=== PATIENT | female | born 1965 | race Asian ===

== ENCOUNTER 2017-01-08 08:29 | Emergency (ER) | payer OTHER ==
[~2017-01-08] VITALS: Ht 162.6 cm; Wt 77.1 kg
[~2017-01-08 08:29] MED LIST: AMOX TR-K CLV1 EAC2 ORAL; COLACE100 MG ORAL; DOCUSATE SODIU100 MG ORAL; FERROUS SULFAT325 M2 ORAL; IBUPROFEN800 M1 PO; IBUPROFEN800 MG ORAL; METFORMIN HCL500 M1 ORAL; NAPROXEN500 M1 ORAL; NORCO 5-325 TA1 EACH ORAL; PERCOCET 5-3251 EACH ORAL; PROMETHAZINE HC25 MG RC; PROMETRIUM100 MG PO; REGLAN10 MG ORAL; ROXICET 5-3251 EACH ORAL; TORADOL10 MG GT
[2017-01-08 08:34] VITALS: BP 149/76
--- NOTE | 2017-01-08 08:54 | Emergency Room Report ---
History of Present Illness General Chief Complaint: Abdominal Pain Source: Patient Present Illness HPI Patient present with complaints of mid epigastric abdominal pain patient reports that since yesterday after eating a salad she began having rhythmical contractions and cramping of her stomach area This was followed by vomiting Patient has now developed increased diarrhea Pain is 8/10 cramping epigastric region Patient reports extensive GI history including multiple hospital visits Last was in [place] where she had an NG tube Patient has had partial hysterectomy, and reports removal of previous fibroids Denies any vaginal pain or spotting denies any pelvic discomfort Allergies: Coded Allergies: No Known Allergies (Unverified , 12/12/12) Patient History Past Medical History: see triage record Pertinent Family History: none Now: No Reviewed Nursing Documentation: PMH: Agreed, PSxH: Agreed Nursing Documentation-PMH Hx Cardiac Problems: No - Hysterectomy september Hx Diabetes: No Hx Cancer: No Hx Gastrointestinal Problems: Yes Hx Neurological Problems: No Review of Systems All Other Systems: negative except mentioned in HPI Physical Exam Vital Signs Date Time Temp Pulse Resp B/P (MAP) Pulse Ox O2 Delivery O2 Flow Rate FiO2 01/08/17 08:34 97.9 79 20 149/76 99 Room Air Sp02 EP Interpretation: reviewed, normal General Appearance: mild distress - Tearful, uncomfortable Head: normocephalic, atraumatic Eyes: bilateral eye PERRL, bilateral eye EOMI ENT: hearing grossly normal, normal pharynx, TMs + canals normal, uvula midline Neck: full range of motion, supple, no meningismus, no bony tend Respiratory: lungs clear, normal breath sounds, no rhonchi, no respiratory distress, no retraction, no accessory muscle use Cardiovascular #1: normal peripheral pulses, regular rate, rhythm, no edema, no gallop, no JVD, no murmur Gastrointestinal: normal bowel sounds, soft, no mass, no organomegaly, non- distended, no guarding, no hernia, no pulsatile mass, no rebound, other - However the patient is subjectively uncomfortable in the epigastric area Musculoskeletal: normal inspection Neurologic: oriented x3, responsive, etcher electrolytic III-XII nml as tested, motor strength/ tone normal, sensory intact Psychiatric: mood/affect normal Skin: normal color, no rash, warm/dry, palpation normal Lymphatic: normal inspection, no adenopathy Medical Decision Making Diagnostic Impression: Primary Impression: Abdominal pain ER Course With the patient's history and examination, multiple differentials considered, including but not limited to , ectopic , ovarian torsion, gastritis, cholecystitis, pancreatitis, appendicitis Patient has had questionable small bowel obstruction in the past At this time the patient's white blood cell count is mildly elevated Otherwise resting comfortably after acute intervention On repeat examination patient feels significantly improved We discussed further imaging such as CAT scan imaging Versus possible NG tube placement that she has had previously Labs Test 01/08/17 09:00 White Blood Count 14.8 K/UL (4.8-10.8) Red Blood Count 5.73 M/UL (4.20-5.40) Hemoglobin 17.7 G/DL (12.0-16.0) Hematocrit 52.2 % (37.0-47.0) Mean Corpuscular Volume 91 FL (80-99) Mean Corpuscular Hemoglobin 30.8 PG (27.0-31.0) Mean Corpuscular Hemoglobin Concent 33.8 G/DL (32.0-36.0) Red Cell Distribution Width 11.4 % (11.6-14.8) Platelet Count 262 K/UL (150-450) Mean Platelet Volume 7.8 FL (6.5-10.1) Neutrophils (%) (Auto) % (45.0-75.0) Lymphocytes (%) (Auto) % (20.0-45.0) Monocytes (%) (Auto) % (1.0-10.0) Eosinophils (%) (Auto) % (0.0-3.0) Basophils (%) (Auto) % (0.0-2.0) Differential Total Cells Counted 100 Neutrophils % (Manual) 83 % (45-75) Lymphocytes % (Manual) 7 % (20-45) Monocytes % (Manual) 4 % (1-10) Eosinophils % (Manual) 6 % (0-3) Basophils % (Manual) 0 % (0-2) Band Neutrophils 0 % (0-8) Platelet Estimate Adequate Platelet Morphology Normal Urine Color Yellow Urine Appearance Slightly cloudy Urine pH 6 (4.5-8.0) Urine Specific [place] 1.020 (1.005-1.035) Urine Protein 1+ (NEGATIVE) Urine Glucose (UA) Negative (NEGATIVE) Urine Ketones Negative (NEGATIVE) Urine Occult Blood 5+ (NEGATIVE) Urine Nitrite Negative (NEGATIVE) Urine Bilirubin Negative (NEGATIVE) Urine Urobilinogen 1 MG/DL (0.0-1.0) Urine Leukocyte Esterase 1+ (NEGATIVE) Urine RBC 10-15 /HPF (0 - 2) Urine WBC 2-4 /HPF (0 - 2) Urine Squamous Epithelial Cells Few /LPF (NONE/OCC) Urine Bacteria Moderate /HPF (NONE) Urine Mucus Few /LPF (NONE/OCC) Urine HCG, Qualitative Negative Sodium Level 138 mEQ/L (135-145) Potassium Level 4.5 mEQ/L (3.4-4.9) Chloride Level 99 mEQ/L (98-107) Carbon Dioxide Level 26 mEQ/L (20-30) Anion Gap 13 (5-15) Blood Urea Nitrogen 11 mg/dL (7-23) Creatinine 0.8 mg/dL (0.5-0.9) Estimat Glomerular Filtration Rate > 60 mL/min (>60) Glucose Level 118 mg/dL (74-106) Calcium Level 10.3 mg/dL (8.6-10.2) Total Bilirubin 0.8 mg/dL (0.0-1.2) Aspartate Amino Transf (AST/SGOT) 27 U/L (5-40) Alanine Aminotransferase (ALT/SGPT) 25 U/L (3-33) Alkaline Phosphatase 55 U/L (35-104) Total Protein 8.1 g/dL (6.6-8.7) Albumin 4.8 g/dL (3.5-5.2) Globulin 3.3 g/dL Albumin/Globulin Ratio 1.4 (1.0-2.7) Lipase 36 U/L (< 60) Last Vital Signs Date Time Temp Pulse Resp B/P (MAP) Pulse Ox O2 Delivery O2 Flow Rate FiO2 01/08/17 08:34 97.9 79 20 149/76 99 Room Air Status: improved Disposition: HOME, SELF-CARE Condition: Improved Scripts Metoclopramide Hcl* (REGLAN*) 10 Mg Tablet 10 MG ORAL BID, #10 TAB Prov: WOJCIECH RUSSELL.OAbel 01/08/17 Famotidine (PEPCID) 40 Mg Tablet 40 MG PO DAILY, #7 TAB 0 Refills Prov: WOJCIECH RUSSELL.OAbel 9/12/17 Referrals: NON PHYSICIAN (PCP) Additional Instructions: Patient is provided with the discharge instructions notified to follow up with primary doctor in the next 2-3 days otherwise return to the er with any worsening symptoms. Please note that this report is being documented using [employer] technology. This can lead to erroneous entry secondary to incorrect interpretation by the dictating instrument. WOJCIECH RUSSELL D.O. Jan 08, 2017 08:53
[2017-01-08] MEDS ORDERED: Morphine Sulfate 4mg/ml Inj IVP ONE (09:00)
[2017-01-08] MEDS ORDERED: Famotidine 20 MG/ 2ML VIAL IVP ONE (09:00)
[2017-01-08] MEDS ORDERED: DiphenhydrAMINE 50mg/ml Inj IVP ONE (09:00)
[2017-01-08 09:22] LABS: APPEARANCE,URINE SLIGHTLY CLOUDY; KETONES,URINE NEGATIVE (NEGATIVE); LEUKOCYTE ESTERASE ,URINE 1+ (NEGATIVE); NITRITE,URINE NEGATIVE (NEGATIVE); PH,URINE 6 (4.5-8.0); PROTEIN,URINE 1+ (NEGATIVE); UROBILINOGEN,URINE 1 MG/DL (0.0-1.0)
[2017-01-08] MEDS ORDERED: NKM (09:27)
[2017-01-08 09:34] LABS: MEAN CORPUSCULAR HEMOGLOBIN 30.8 PG (27.0-31.0); MEAN CORPUSCULAR HGB CONC 33.8 G/DL (32.0-36.0); MEAN CORPUSCULAR VOLUME 91 FL (80-99); MEAN PLATELET VOLUME 7.8 FL (6.5-10.1); PLATELET COUNT 262 K/UL (150-450); RED BLOOD COUNT 5.73 M/UL (4.20-5.40); RED CELL DISTRIBUTION WIDTH 11.4 % (11.6-14.8); WHITE BLOOD COUNT 14.8 K/UL (4.8-10.8)
[2017-01-08 09:36] LABS: ALANINE AMINOTRANSFERASE 25 U/L (3-33); ALBUMIN/GLOBULIN RATIO 1.4 (1.0-2.7); ANION GAP 13 (5-15); ASPARTATE AMINO TRANSFERASE 27 U/L (5-40); CALCIUM 10.3 mg/dL (8.6-10.2); CARBON DIOXIDE 26 mEQ/L (20-30); CHLORIDE 99 mEQ/L (98-107); CREATININE 0.8 mg/dL (0.5-0.9); GLOMERULAR FILTRATION RATE > 60 mL/min (>60); HEMOLYSIS 7; LIPASE 36 U/L (< 60); POTASSIUM 4.5 mEQ/L (3.4-4.9); SODIUM 138 mEQ/L (135-145); TOTAL PROTEIN 8.1 g/dL (6.6-8.7)
[2017-01-08 09:40] LABS: BACTERIA,URINE MODERATE /HPF; MUCUS,URINE FEW /LPF (NONE/OCC); SQUAMOUS EPITHELIAL CELL,UR FEW /LPF (NONE/OCC)
[2017-01-08 10:08] LABS: EOSINOPHILS % (MANUAL) 6 % (0-3); LYMPHOCYTES % (MANUAL) 7 % (20-45); NEUTROPHILS % (MANUAL) 83 % (45-75); TOTAL CELLS COUNTED 100
[2017-01-08 10:09] LABS: BAND NEUTROPHILS % (MANUAL) 0 % (0-8); BASOPHILS % (MANUAL) 0 % (0-2); PLATELET ESTIMATE ADEQUATE; PLATELET MORPHOLOGY NORMAL
[2017-01-08 10:38] VITALS: BP 118/79
[2017-01-08] MEDS ORDERED: REGLAN10 MG ORAL (10:49)
[2017-01-08] MEDS ORDERED: PEPCID40 MG PO (10:49)
[2017-01-08 10:55] VITALS: BP 118/79
== END 2017-01-08 10:55 | disposition home or self-care (01) ==
LOC: EMR 08:44
DX: R10.9 Unspecified abdominal pain (principal); R11.10 Vomiting, unspecified; R19.7 Diarrhea, unspecified; Z90.710 Acquired absence of both cervix and uterus
CPT/HCPCS: 36415; 80053; 81003; 81025; 83690; 85007; 85025; 87086; 87181; 96361; 96374; 96375; 99284; J1200; J2270; J2405; S0028

== ENCOUNTER 2018-09-02 02:01 | Inpatient (IN) | payer OTHER ==
[2018-09-02] VITALS (7 sets, daily range): BP systolic 109–148; BP diastolic 65–88
[~2018-09-02] VITALS: Ht 167.6 cm; Wt 67.8 kg
[~2018-09-02 02:01] MED LIST changes: +NKM; +PEPCID40 MG PO
--- NOTE | 2018-09-02 02:20 | NUR ---
ED Nurse Note: pt walked in c/o epigastric abd pain since this morning, pt reports she ate breakfast and drank coffee and started having nausea with pain, took tylenol and it went away but it came back and worsen, pt reports she had vomiting and diarrhea. +tenderness on epigastric region, vss, resp even and unlabored, abd soft nondistended, active bs, will cont monitor.
--- NOTE | 2018-09-02 02:22 | Emergency Room Report ---
History of Present Illness General Chief Complaint: Abdominal Pain Source: Patient Present Illness [facility] This is a 53-year-old female with a history of partial hysterectomy in had previous small bowel obstruction because of it. She presents with chief complaint abdominal pain. Onset this morning. It was better after Tylenol. But it came back again tonight after she got back from [place]. Pain was crampy and sharp. 9 out of 10. She has vomiting. Now with diarrhea. Eating and drinking made it worse. No fever chills but no fever. Similar symptoms in the past. Allergies: Coded Allergies: No Known Allergies (Unverified , 12/12/12) Patient History Past Medical History: see triage record, old chart reviewed Past Surgical History: hysterectomy Pertinent Family History: none Social History: Denies: smoking Last Menstrual Period: n/a Now: No Immunizations: other Reviewed Nursing Documentation: PMH: Agreed; PSxH: Agreed Nursing Documentation-PMH Past Medical History: No History, Except For Hx Cardiac Problems: No - Hysterectomy september Hx Diabetes: No Hx Cancer: No Hx Gastrointestinal Problems: Yes Hx Neurological Problems: No Review of Systems Eye: Denies: eye pain, blurred vision ENT: Denies: ear pain, nose congestion, throat swelling Respiratory: Denies: cough, shortness of breath Cardiovascular: Denies: chest pain, palpitations Gastrointestinal: Reports: abdominal pain, diarrhea, nausea, vomiting Musculoskeletal: Denies: back pain, joint pain Skin: Denies: rash Neurological: Denies: headache, numbness Endocrine: Denies: increased thirst, increased urine Hematologic/Lymphatic: Denies: easy bruising All Other Systems: negative except mentioned in HPI Physical Exam Vital Signs Date Time Temp Pulse Resp B/P (MAP) Pulse Ox O2 Delivery O2 Flow Rate FiO2 09/02/18 02:03 98.2 83 18 95 Room Air 09/02/18 02:17 148/88 vital signs unremarkable Sp02 EP Interpretation: reviewed, normal General Appearance: well appearing, no apparent distress, alert Head: normocephalic, atraumatic Eyes: bilateral eye PERRL, bilateral eye EOMI ENT: hearing grossly normal, normal pharynx Neck: full range of motion, supple, no meningismus Respiratory: chest non-tender, lungs clear, normal breath sounds Cardiovascular #1: regular rate, rhythm, no murmur Gastrointestinal: no mass, no organomegaly, no bruit, non-distended, tenderness - Diffuse, decreased bowel sounds Musculoskeletal: back normal, gait/station normal, normal range of motion Psychiatric: mood/affect normal Skin: warm/dry Medical Decision Making Diagnostic Impression: Primary Impression: Abdominal pain Additional Impressions: Nausea & vomiting Qualified Codes: R11.2 - Nausea with vomiting, unspecified UTI (urinary tract infection) Qualified Codes: N30.00 - Acute cystitis without hematuria Enteritis ER Course Patient with abdominal pain and vomiting. She has a history of hysterectomy and small bowel obstruction. For CT scan is equivocal. I gave her oral contrast and repeat x-rays. Contrast was not see very well. Patient is given another CT scan to see if she has obstruction. She felt better now. We'll discharge home if there is no obstruction. I will sign this patient out to Dr. Barry for final disposition. Lab Results Impression labs unremarkable Other X-Ray Diagnostic Results Other X-Ray Diagnostic Results : X-Ray ordered: Abdominal x-rays # of Views/Limited Vs Complete: 3 View Indication: Pain EP Interpretation: Yes Interpretation: no dislocation, no soft tissue swelling, no fractures, nonspecific bowel gas Impression: No acute disease Electronically Signed by: Cb Hubbard MD CT/MRI/US Diagnostic Results CT/MRI/US Diagnostic Results #1: Imaging Test Ordered: CT abdomen and pelvis Impression Read by radiologist. Dilated fluid-filled loops of small bowels. Could be early or partial small bowel obstruction versus ileus. Fluid seen in multiple loops of small bowel as well as:. Enteritis would also be consideration. CT/MRI/US Diagnostic Results #2: Imaging Test Ordered: CT abdomen and pelvis Impression Read by radiologist. Diffuse distension of bowel Last Vital Signs Date Time Temp Pulse Resp B/P (MAP) Pulse Ox O2 Delivery O2 Flow Rate FiO2 09/02/18 02:17 88 16 Room Air 09/02/18 02:17 98.2 148/88 98 Status: improved Disposition: ADMITTED INPATIENT Condition: Critical Cb Hubbard MD September 02, 2018 02:22
[2018-09-02] MEDS ORDERED: Morphine Sulfate 4mg/ml Inj (IV USE ONLY) IVP ONE (02:30)
[2018-09-02] MEDS ORDERED: Pantoprazole Inj IVP ONE (02:30)
--- NOTE | 2018-09-02 02:34 | NUR ---
ED Nurse Note: Pt taken for CT of abdomen.
[2018-09-02 02:43] LABS: APPEARANCE,URINE SLIGHTLY CLOUDY; BILIRUBIN, URINE NEGATIVE (NEGATIVE); GLUCOSE, URINE (UA) NEGATIVE (NEGATIVE); KETONES,URINE 2+ (NEGATIVE); LEUKOCYTE ESTERASE ,URINE 1+ (NEGATIVE); NITRITE,URINE NEGATIVE (NEGATIVE); PH,URINE 5 (4.5-8.0); PROTEIN,URINE 3+ (NEGATIVE); UROBILINOGEN,URINE NORMAL MG/DL (0.0-1.0)
[2018-09-02 02:44] LABS: HEMATOCRIT 47.8 % (37.0-47.0); HEMOGLOBIN 16.5 G/DL (12.0-16.0); MEAN CORPUSCULAR VOLUME 86 FL (80-99); PLATELET COUNT 264 K/UL (150-450); RED BLOOD COUNT 5.54 M/UL (4.20-5.40); RED CELL DISTRIBUTION WIDTH 11.8 % (11.6-14.8); WHITE BLOOD COUNT 13.8 K/UL (4.8-10.8)
[2018-09-02 02:44] LABS: COLOR,URINE YELLOW
[2018-09-02 02:56] LABS: ANION GAP 10 mmol/L (5-15); BLOOD UREA NITROGEN 12 mg/dL (7-18); CALCIUM 8.9 MG/DL (8.5-10.1); CARBON DIOXIDE 24 MMOL/L (21-32); CHLORIDE 102 MMOL/L (98-107); CREATININE 0.8 MG/DL (0.55-1.30); SODIUM 136 MMOL/L (136-145)
[2018-09-02 03:02] LABS: ALANINE AMINOTRANSFERASE 33 U/L (12-78); ALBUMIN 4.2 G/DL (3.4-5.0); ALBUMIN/GLOBULIN RATIO 1.1 (1.0-2.7); ALKALINE PHOSPHATASE 57 U/L (46-116); ASPARTATE AMINO TRANSFERASE 21 U/L (15-37); BILIRUBIN,TOTAL 0.6 MG/DL (0.2-1.0)
[2018-09-02] MEDS ORDERED: cefTRIAXone 1 GM in NS 55 ML IVPB ONE (03:30)
[2018-09-02] MEDS ORDERED: Gastrograffin 30ml ORAL ONE (03:45)
[2018-09-02] MEDS ORDERED: Gastrograffin 30ml RECTAL PRN (06:00)
[2018-09-02] MEDS ORDERED: Ketorolac 30mg Inj IV ONE (06:00)
--- NOTE | 2018-09-02 06:08 | NUR ---
ED Nurse Note: Pt left unit for CT with oral contrast.
--- NOTE | 2018-09-02 07:08 | NUR ---
HAND-OFF: Report given to CALEB Medina. Pt stable. Pt denies pain at this time.
--- NOTE | 2018-09-02 07:09 | NUR ---
ED Nurse Note: recieved pt on bed, communicates well,pt stated that the last time she vomited was @1am and was medicated in the ed. denies pain at moment. pt connected to vs with vs within normal limit. will continue to monitor.
--- NOTE | 2018-09-02 07:55 | NUR ---
ED Nurse Note: ermd on bedside discussing the plan of care, explaining the result of the ct. will continue to monitor.
--- NOTE | 2018-09-02 09:00 | Diagnostic Imaging Report ---
Indication: Abdominal pain Technique: Continuous helical transaxial imaging of the abdomen and pelvis was obtained from the lung bases to the pubic symphysis. Study was performed with oral contrast. No intravenous contrast was administered. Coronal 2-D reformats were also obtained. Automatic Exposure Control was utilized. Total Dose length Product (DLP): 909.[address] Dose Index Volume (CTDIvol): 17.93 mGy Comparison: 02:25 Findings: Oral contrast noted in the stomach and within multiple small bowel loops. The contrast material does not reach the terminal ileum and is somewhat within the distal jejunum or proximal ileum. There is no transition. The findings suggestive of ileus or enteritis. Since this is not a dynamic study, suggest follow-up small bowel series or at least a follow-up KUB. Hiatal hernia is present. There is no change otherwise compared to the earlier study. IMPRESSION: Diffuse generalized small bowel dilatation most likely due to enteritis/ileus. No transition identified. Recommend follow-up. The CT scanner at [facility] is accredited by the [employer] and the scans are performed using dose optimization techniques as appropriate to a performed exam including Automatic Exposure control.
--- NOTE | 2018-09-02 09:02 | Diagnostic Imaging Report ---
Indication: Abdominal pain Technique: Continuous helical transaxial imaging of the abdomen and pelvis was obtained from the lung bases to the pubic symphysis. No intravenous contrast was administered. Coronal 2-D reformats were also obtained. Automatic Exposure Control was utilized. Total Dose length Product (DLP): 909.[address] Dose Index Volume (CTDIvol): 17.93 mGy Comparison: 10/14/2014 Findings: There is diffuse generalized dilatation of small bowel without a transition. The appendix is normal. There is no pneumatosis or free air or ascites. Small nodes are seen in the retroperitoneum. The urinary bladder is unremarkable. Gallbladder is unremarkable. Appendix is normal. There is no nephrolithiasis or hydronephrosis appreciated. IMPRESSION: Dilated fluid-filled loops of small bowel. Suspect enteritis/ileus. Other findings as above [facility] has communicated the preliminary results to the Emergency Department. Their findings are largely concordant with this report. The CT scanner at [facility] is accredited by the [employer] and the scans are performed using dose optimization techniques as appropriate to a performed exam including Automatic Exposure control.
--- NOTE | 2018-09-02 10:26 | Diagnostic Imaging Report ---
Indication: Abdominal pain Comparison: None Single view of the abdomen obtained Findings: Oral contrast was administered and one hour post KUB performed. The exam shows multiple distended loops of small bowel. Contrast has not reached the colon as of yet. CT was also done. IMPRESSION: Dilated small bowel. Please refer to the CT report
--- NOTE | 2018-09-02 10:33 | NUR ---
ED Nurse Note: attempted to give report to nurse from room 315 and advice to return call after 5 minutes to give report.
--- NOTE | 2018-09-02 11:00 | NUR ---
NURSE NOTES:RECEIVED REPORT FR ER NURSE
--- NOTE | 2018-09-02 11:00 | NUR ---
ED Nurse Note: TELEPHONE REPORT GIVEN TO CALEB WOODY
--- NOTE | 2018-09-02 11:02 | NUR ---
ED Nurse Note: PT. TOOK TYLENOL AROUND 0130
[2018-09-02] MEDS ORDERED: IBUPROFEN600 MG ORAL (11:03)
--- NOTE | 2018-09-02 11:05 | NUR ---
ED Nurse Note: pt was transfered to ms 315 with all belongings and with stable vital signs
--- NOTE | 2018-09-02 11:25 | NUR ---
NURSE NOTES:FR. ER BY WHEELCHAIR ACCOMPANIED BY ER TRANSPORTER TECH(JASON),BELONGINGS REVIEWED,CONFIRMED AND SIGNED BY PATIENT.ADMISSION ASSESSMENT DONE.53 YEAR OLD FEMALE FR. HOME,BECAUSE OF ABDOMINAL PAIN/VOMITING AFTER EATING EARLY THIS MORNING, A/OX4,ROOM AIR,EXTREMITIES MOBILE,SKIN INTACT,NO C/O ABDOMINAL PAIN AT THIS TIME.PLAN OF CARE AND ORDERS DISCUSSED WITH UNDERSTANDING
--- NOTE | 2018-09-02 11:42 | Consultation ---
History of Present Illness General Date patient seen: September 02, 2018 Reason for Hospitalization: Abdominal Pain Present Illness HPI This is a very pleasant 53 year old female with history of prior hysterectomy for bleeding who presented with abdominal pain/cramping, nauseas and emesis. States that since her hysterectomy she has had prior episodes of sbo which resolved without surgery. she travels a lot and just got back from out of town when her pain began. states she usually has a colicy gi system but this episoded lasted longer. states if she eats well her colic is okay but did not eat well recently and developed symptoms. when pain began had nausea and non bloody emesis. no fever or chills. came to ED for evaluation. c/o GERD as well. in ED noted to have abnormal labs and CT with ileus/enteritis. surgery called to evaluate. Allergies: Coded Allergies: No Known Allergies (Unverified , 12/12/12) Medication History Scheduled Famotidine (Pepcid), 40 MG PO DAILY Ibuprofen* (Motrin*), 800 MG ORAL THREE TIMES A DAY, (Reported) Ketorolac Tromethamine (Ketorolac Tromethamine), 10 MG GT Q6HR Metoclopramide Hcl* (Reglan*), 10 MG ORAL THREE TIMES A DAY Metoclopramide Hcl* (Reglan*), 10 MG ORAL BID No Known Medications* (NKM - No Known Medications*), 0 ., (Reported) Scheduled PRN Oxycodone/Acetaminophen 5-325* (Percocet 5-325 Mg Tablet*), 1 TAB ORAL Q4H PRN for For Pain, (Reported) Discontinued Medications Ibuprofen (Ibuprofen), 800 MG PO FOUR TIMES A DAY PRN for For Pain, (Reported) Discontinued Reason: Pt stopped taking med Patient History History Provided By: Patient, Medical Record, PMD Healthcare decision maker Resuscitation status Advanced Directive on File Past Medical/Surgical History Past Medical/Surgical History: (1) Constipation (2) Acute retention of urine (3) Encounter for Hernandez catheter removal (4) Acute retention of urine (5) Fibroids (6) Symptomatic anemia (7) Abdominal pain (8) UTI (urinary tract infection) (9) Abdominal pain (10) Nausea & vomiting (11) Small bowel obstruction (12) Nausea & vomiting (13) Intractable abdominal pain Review of Systems Review of Symptoms General ROS: no weight loss or fever Psychological ROS: no depression or mood changes, no memory loss Ophthalmic ROS: no visual changes or eye irritation ENT ROS: no nasal congestion, hearing loss, dizziness Allergy and Immunology ROS: no allergic symptoms or urticaria Hematological and Lymphatic ROS: no swollen glands, unusual bleeding or bruising Endocrine ROS: no polyuria, polydipsia, weight changes, temperature intolerance Respiratory ROS: no cough, shortness of breath, or wheezing Cardiovascular ROS: no chest pain or dyspnea on exertion Gastrointestinal ROS: denies abdominal pain, no bright red blood in stool. Musculoskeletal ROS: no myalgias or arthralgias Neurological ROS: no TIA or stroke symptoms Dermatological ROS: no new or changing skin lesions, rashes or pruritis Physical Exam Physical Exam General appearance: alert, cooperative, no distress, appears stated age Head: Normocephalic, without obvious abnormality, atraumatic Eyes: conjunctivae/corneas clear. PERRL, EOM's intact. Fundi benign Throat: Lips, mucosa, and tongue normal. Teeth and gums normal Neck: supple, symmetrical, trachea midline, no adenopathy, thyroid: not enlarged, symmetric, no tenderness/mass/nodules, no carotid bruit and no JVD Lungs: clear to auscultation bilaterally Heart: regular rate and rhythm, S1, S2 normal, no murmur, click, rub or gallop Abdomen: soft, non-tender. Bowel sounds normal. No masses, no organomegaly Extremities: extremities normal, atraumatic, no cyanosis or edema Pulses: 2+ and symmetric Skin: Skin color, texture, turgor normal. No rashes or lesions Neurologic: Grossly normal Last 24 Hour Vital Signs Date Time Temp Pulse Resp B/P (MAP) Pulse Ox O2 Delivery O2 Flow Rate FiO2 09/02/18 09:41 98.3 80 19 124/65 100 Room Air 09/02/18 07:31 98.3 76 16 121/68 99 Room Air 09/02/18 06:30 98.1 74 17 109/65 98 Room Air 09/02/18 06:30 98.1 09/02/18 04:30 98.2 72 17 127/84 96 Room Air 09/02/18 02:55 98.2 09/02/18 02:17 88 16 Room Air 09/02/18 02:17 98.2 88 18 148/88 98 Room Air 09/02/18 02:03 98.2 83 18 95 Room Air Laboratory Tests Test 09/02/18 02:00 09/02/18 02:25 Urine Color Yellow Urine Appearance Slightly cloudy Urine pH 5 (4.5-8.0) Urine Specific [place] 1.025 (1.005-1.035) Urine Protein 3+ (NEGATIVE) H Urine Glucose (UA) Negative (NEGATIVE) Urine Ketones 2+ (NEGATIVE) H Urine Blood 5+ (NEGATIVE) H Urine Nitrite Negative (NEGATIVE) Urine Bilirubin Negative (NEGATIVE) Urine Urobilinogen Normal MG/DL (0.0-1.0) Urine Leukocyte Esterase 1+ (NEGATIVE) H Urine RBC 5-10 /HPF (0 - 2) H Urine WBC 2-4 /HPF (0 - 2) Urine Squamous Epithelial Cells Few /LPF (NONE/OCC) Urine Amorphous Sediment Many /LPF (NONE) H Urine Bacteria Moderate /HPF (NONE) H White Blood Count 13.8 K/UL (4.8-10.8) H Red Blood Count 5.54 M/UL (4.20-5.40) H Hemoglobin 16.5 G/DL (12.0-16.0) H Hematocrit 47.8 % (37.0-47.0) H Mean Corpuscular Volume 86 FL (80-99) Mean Corpuscular Hemoglobin 29.8 PG (27.0-31.0) Mean Corpuscular Hemoglobin Concent 34.6 G/DL (32.0-36.0) Red Cell Distribution Width 11.8 % (11.6-14.8) Platelet Count 264 K/UL (150-450) Mean Platelet Volume 8.0 FL (6.5-10.1) Neutrophils (%) (Auto) % (45.0-75.0) Lymphocytes (%) (Auto) % (20.0-45.0) Monocytes (%) (Auto) % (1.0-10.0) Eosinophils (%) (Auto) % (0.0-3.0) Basophils (%) (Auto) % (0.0-2.0) Differential Total Cells Counted 100 Neutrophils % (Manual) 88 % (45-75) H Lymphocytes % (Manual) 8 % (20-45) L Monocytes % (Manual) 3 % (1-10) Eosinophils % (Manual) 1 % (0-3) Basophils % (Manual) 0 % (0-2) Band Neutrophils 0 % (0-8) Platelet Estimate Adequate Platelet Morphology Normal Prothrombin Time 10.3 SEC (9.30-11.50) Prothromb Time International Ratio 1.0 (0.9-1.1) Activated Partial Thromboplast Time 27 SEC (23-33) Sodium Level 136 MMOL/L (136-145) Potassium Level 4.0 MMOL/L (3.5-5.1) Chloride Level 102 MMOL/L (98-107) Carbon Dioxide Level 24 MMOL/L (21-32) Anion Gap 10 mmol/L (5-15) Blood Urea Nitrogen 12 mg/dL (7-18) Creatinine 0.8 MG/DL (0.55-1.30) Estimat Glomerular Filtration Rate > 60 mL/min (>60) Glucose Level 134 MG/DL (74-106) H Calcium Level 8.9 MG/DL (8.5-10.1) Total Bilirubin 0.6 MG/DL (0.2-1.0) Aspartate Amino Transf (AST/SGOT) 21 U/L (15-37) Alanine Aminotransferase (ALT/SGPT) 33 U/L (12-78) Alkaline Phosphatase 57 U/L (46-116) Total Protein 7.9 G/DL (6.4-8.2) Albumin 4.2 G/DL (3.4-5.0) Globulin 3.7 g/dL Albumin/Globulin Ratio 1.1 (1.0-2.7) Lipase 153 U/L (73-393) Height (Feet): 5 Height (Inches): 6.00 Weight (Pounds): 150 Medications Current Medications Medications (Trade) Dose Ordered Sig/Carlos Route PRN Reason Start Time Stop Time Status Last Admin Dose Admin Diatrizoate Meglum/ Diatrizoate Sod (Gastrografin) 60 ml NOW PRN RECTAL Radiology Procedure 09/02/18 06:00 09/04/18 05:53 Assessment/Plan Problem List: (1) Abdominal pain Assessment & Plan: 53 year old F with abdominal pain, nausea, emesis, leukocytosis, CT with enteritis. afebrile, HD stable, exam benign CT noted labs noted -no acute surgical intervention necessary -npo; okay for ice chips and meds -iv fluids -iv abx -AM labs -AM KUB will follow with recs ICD Codes: R10.9 - Unspecified abdominal pain SNOMED: [id number] (2) Nausea & vomiting ICD Codes: R11.2 - Nausea with vomiting, unspecified SNOMED: 37116451 Qualifiers: Qualified Codes: R11.2 - Nausea with vomiting, unspecified Ankti Wilkerson September 02, 2018 11:42
--- NOTE | 2018-09-02 12:00 | NUR ---
NURSE NOTES:SEEN BY DR. HOLMAN.NO SURGERY INDICATED OF THIS TIME.
--- NOTE | 2018-09-02 13:33 | Diagnostic Imaging Report ---
Indication: Abdominal pain Comparison: 09/02/2018 earlier time Single view of the abdomen obtained Findings: Orally administered contrast was noted in the small bowel on the earlier film done at 5:00 AM, administered for the CT. That contrast is now within the colon. Dilated small bowel still noted. IMPRESSION: Distended small bowel consistent with enteritis/ileus.
--- NOTE | 2018-09-02 13:50 | GI Initial Consult Note ---
History of Present Illness General Date patient seen: September 02, 2018 Time patient seen: 13:41 Reason for Hospitalization: Abdominal Pain Referring physician: JARVIS YANEZ Reason for Consultation: SBO Present Illness HPI This is a 53-year-old female with a history of partial hysterectomy in had previous small bowel obstruction because of it. She presents with chief complaint abdominal pain. Onset this morning. It was better after Tylenol. But it came back again tonight after she got back from [place]. Pain was crampy and sharp. 9 out of 10. She has vomiting. Now with diarrhea. Eating and drinking made it worse. No fever chills but no fever. Similar symptoms in the past. GI consulted for abdominal pain, possible partial SBO as noted on recent CT. Pt seen, awake A&Ox4 NAD with no active s/sx of N/V/D. Per patient, had multiple episodes of emesis and abdominal cramping last night which has resolved at this time. Her abdominal is soft, non distended. She stated she had a BM this morning as well. She has a history of partial SBO back in 2014 after her partial hysterectomy, in which no surgical intervention was done and the SBO was allowed to resolve on its own. Labs review noted with leukocytosis and hemoconcentration. Patient has no history of endoscopy or colonoscopy. Home Meds Active Scripts Metoclopramide Hcl* (REGLAN*) 10 Mg Tablet, 10 MG ORAL BID, #10 TAB Prov:Jarvis Barry DO 01/08/17 Famotidine (PEPCID) 40 Mg Tablet, 40 MG PO DAILY, #7 TAB 0 Refills Prov:Jarvis Barry DO 01/08/17 Metoclopramide Hcl* (REGLAN*) 10 Mg Tablet, 10 MG ORAL THREE TIMES A DAY, #20 TAB Prov:ALYCE NELSON D.O. 10/14/14 Ketorolac Tromethamine (Ketorolac Tromethamine) 10 Mg Tab, 10 MG GT Q6HR, #30 TAB Prov:Addy Daugherty MD 09/15/14 Reported Medications Ibuprofen* (MOTRIN*) 600 Mg Tablet, 800 MG ORAL THREE TIMES A DAY, #30 TAB 0 Refills 09/02/18 No Known Medications* (NKM - No Known Medications*) ., 0 ., 0 Refills 01/08/17 Oxycodone/Acetaminophen 5-325* (PERCOCET 5-325 MG TABLET*) 1 Each Tablet, 1 TAB ORAL Q4H PRN for For Pain, TAB 10/14/14 Discontinued Reported Medications Ibuprofen (Ibuprofen) 800 Mg Tablet, 800 MG PO FOUR TIMES A DAY PRN for For Pain , TAB 10/14/14 Med list reviewed/reconciled: Yes Allergies: Coded Allergies: No Known Allergies (Unverified , 12/12/12) Patient History History Provided By: Patient, Medical Record PM Narrative Past Medical History: see triage record, old chart reviewed Past Surgical History: hysterectomy Pertinent Family History: none Social History: Denies: smoking Last Menstrual Period: n/a Now: No Immunizations: other Reviewed Nursing Documentation: PMH: Agreed; PSxH: Agreed Nursing Documentation-PM Past Medical History: No History, Except For Hx Cardiac Problems: No - Hysterectomy September Hx Diabetes: No Hx Cancer: No Hx Gastrointestinal Problems: Yes Hx Neurological Problems: No Social History: Reports: smoking; Denies: alcohol use, drug use, other Review of Systems All Other Systems: negative except mentioned in HPI Physical Exam Vital Signs Date Time Temp Pulse Resp B/P (MAP) Pulse Ox O2 Delivery O2 Flow Rate FiO2 09/02/18 02:03 98.2 83 18 95 Room Air 09/02/18 02:17 148/88 Sp02 EP Interpretation: reviewed, normal Labs Laboratory Tests Test 09/02/18 02:00 09/02/18 02:25 Urine Color Yellow Urine Appearance Slightly cloudy Urine pH 5 (4.5-8.0) Urine Specific [place] 1.025 (1.005-1.035) Urine Protein 3+ (NEGATIVE) H Urine Glucose (UA) Negative (NEGATIVE) Urine Ketones 2+ (NEGATIVE) H Urine Blood 5+ (NEGATIVE) H Urine Nitrite Negative (NEGATIVE) Urine Bilirubin Negative (NEGATIVE) Urine Urobilinogen Normal MG/DL (0.0-1.0) Urine Leukocyte Esterase 1+ (NEGATIVE) H Urine RBC 5-10 /HPF (0 - 2) H Urine WBC 2-4 /HPF (0 - 2) Urine Squamous Epithelial Cells Few /LPF (NONE/OCC) Urine Amorphous Sediment Many /LPF (NONE) H Urine Bacteria Moderate /HPF (NONE) H White Blood Count 13.8 K/UL (4.8-10.8) H Red Blood Count 5.54 M/UL (4.20-5.40) H Hemoglobin 16.5 G/DL (12.0-16.0) H Hematocrit 47.8 % (37.0-47.0) H Mean Corpuscular Volume 86 FL (80-99) Mean Corpuscular Hemoglobin 29.8 PG (27.0-31.0) Mean Corpuscular Hemoglobin Concent 34.6 G/DL (32.0-36.0) Red Cell Distribution Width 11.8 % (11.6-14.8) Platelet Count 264 K/UL (150-450) Mean Platelet Volume 8.0 FL (6.5-10.1) Neutrophils (%) (Auto) % (45.0-75.0) Lymphocytes (%) (Auto) % (20.0-45.0) Monocytes (%) (Auto) % (1.0-10.0) Eosinophils (%) (Auto) % (0.0-3.0) Basophils (%) (Auto) % (0.0-2.0) Differential Total Cells Counted 100 Neutrophils % (Manual) 88 % (45-75) H Lymphocytes % (Manual) 8 % (20-45) L Monocytes % (Manual) 3 % (1-10) Eosinophils % (Manual) 1 % (0-3) Basophils % (Manual) 0 % (0-2) Band Neutrophils 0 % (0-8) Platelet Estimate Adequate Platelet Morphology Normal Prothrombin Time 10.3 SEC (9.30-11.50) Prothromb Time International Ratio 1.0 (0.9-1.1) Activated Partial Thromboplast Time 27 SEC (23-33) Sodium Level 136 MMOL/L (136-145) Potassium Level 4.0 MMOL/L (3.5-5.1) Chloride Level 102 MMOL/L (98-107) Carbon Dioxide Level 24 MMOL/L (21-32) Anion Gap 10 mmol/L (5-15) Blood Urea Nitrogen 12 mg/dL (7-18) Creatinine 0.8 MG/DL (0.55-1.30) Estimat Glomerular Filtration Rate > 60 mL/min (>60) Glucose Level 134 MG/DL (74-106) H Calcium Level 8.9 MG/DL (8.5-10.1) Total Bilirubin 0.6 MG/DL (0.2-1.0) Aspartate Amino Transf (AST/SGOT) 21 U/L (15-37) Alanine Aminotransferase (ALT/SGPT) 33 U/L (12-78) Alkaline Phosphatase 57 U/L (46-116) Total Protein 7.9 G/DL (6.4-8.2) Albumin 4.2 G/DL (3.4-5.0) Globulin 3.7 g/dL Albumin/Globulin Ratio 1.1 (1.0-2.7) Lipase 153 U/L (73-393) General Appearance: well appearing, no apparent distress, alert Head: normocephalic EENT: PERRL/EOMI, normal ENT inspection Neck: supple Respiratory: normal breath sounds, no respiratory distress Cardiovascular: normal rate Gastrointestinal: normal inspection, non tender, soft, normal bowel sounds, non -distended Rectal: deferred Genitourinary: no CVA tenderness Musculoskeletal: normal inspection, back normal Neurologic: normal inspection, alert, oriented x3, responsive Psychiatric: normal inspection, judgement/insight normal, memory normal Skin: normal inspection, normal color, no rash, warm/dry, palpation normal, well hydrated Lymphatic: normal inspection, no adenopathy Current Medications Current Medications Medications (Trade) Dose Ordered Sig/Carlos Route PRN Reason Start Time Stop Time Status Last Admin Dose Admin Diatrizoate Meglum/ Diatrizoate Sod (Gastrografin) 60 ml NOW PRN RECTAL Radiology Procedure 09/02/18 06:00 09/04/18 05:53 Piperacillin Sod/ Tazobactam Sod 3.375 gm/Sodium Chloride 110 ml @ 27.5 mls/hr EVERY 8 HOURS IVPB 09/02/18 14:00 09/07/18 13:59 GI: Plan Problems: (1) Constipation (2) Symptomatic anemia (3) Intractable abdominal pain (4) Abdominal pain (5) Small bowel obstruction (6) Nausea & vomiting Plan serial KUB noted, distended SB still present maintain NPO + IVFs SBFT tomorrow serial imaging as needed zofran prn will follow with additional recs post imaging study surgical recs Discussed with Dr. Hayes. Thank you for this patient referral, we will follow. The patient was seen and examined at bedside and all new and available data was reviewed in the patients chart. I agree with the above findings, impression and plan. (Patient seen earlier today. Signature stamp does not reflect patient encounter time.). - MD Haydee AndrewBanner Payson Medical CenterMerna MARTINEZ September 02, 2018 13:50
[2018-09-02] MEDS: Piperacillin/Tazobactam 3.375 GM in NS 110 ML IVPB SCH ×2 (14:26→20:50)
--- NOTE | 2018-09-02 15:26 | Consultation ---
History of Present Illness General Chief Complaint: Abdominal Pain Referring physician: JARVIS YANEZ Reason for Consultation: SBO Present Illness Allergies: Coded Allergies: No Known Allergies (Unverified , 12/12/12) Medication History Scheduled Famotidine (Pepcid), 40 MG PO DAILY Ibuprofen* (Motrin*), 800 MG ORAL THREE TIMES A DAY, (Reported) Ketorolac Tromethamine (Ketorolac Tromethamine), 10 MG GT Q6HR Metoclopramide Hcl* (Reglan*), 10 MG ORAL THREE TIMES A DAY Metoclopramide Hcl* (Reglan*), 10 MG ORAL BID No Known Medications* (NKM - No Known Medications*), 0 ., (Reported) Scheduled PRN Oxycodone/Acetaminophen 5-325* (Percocet 5-325 Mg Tablet*), 1 TAB ORAL Q4H PRN for For Pain, (Reported) Discontinued Medications Ibuprofen (Ibuprofen), 800 MG PO FOUR TIMES A DAY PRN for For Pain, (Reported) Discontinued Reason: Pt stopped taking med Patient History Healthcare decision maker Resuscitation status Full Code Advanced Directive on File No Physical Exam Last 24 Hour Vital Signs Date Time Temp Pulse Resp B/P (MAP) Pulse Ox O2 Delivery O2 Flow Rate FiO2 09/02/18 11:25 Room Air 09/02/18 11:05 98.0 68 16 121/78 98 Room Air 09/02/18 09:41 98.3 80 19 124/65 100 Room Air 09/02/18 07:31 98.3 76 16 121/68 99 Room Air 09/02/18 06:30 98.1 74 17 109/65 98 Room Air 09/02/18 06:30 98.1 09/02/18 04:30 98.2 72 17 127/84 96 Room Air 09/02/18 02:55 98.2 09/02/18 02:17 88 16 Room Air 09/02/18 02:17 98.2 88 18 148/88 98 Room Air 09/02/18 02:03 98.2 83 18 95 Room Air Laboratory Tests Test 09/02/18 02:00 09/02/18 02:25 Urine Color Yellow Urine Appearance Slightly cloudy Urine pH 5 (4.5-8.0) Urine Specific [place] 1.025 (1.005-1.035) Urine Protein 3+ (NEGATIVE) H Urine Glucose (UA) Negative (NEGATIVE) Urine Ketones 2+ (NEGATIVE) H Urine Blood 5+ (NEGATIVE) H Urine Nitrite Negative (NEGATIVE) Urine Bilirubin Negative (NEGATIVE) Urine Urobilinogen Normal MG/DL (0.0-1.0) Urine Leukocyte Esterase 1+ (NEGATIVE) H Urine RBC 5-10 /HPF (0 - 2) H Urine WBC 2-4 /HPF (0 - 2) Urine Squamous Epithelial Cells Few /LPF (NONE/OCC) Urine Amorphous Sediment Many /LPF (NONE) H Urine Bacteria Moderate /HPF (NONE) H White Blood Count 13.8 K/UL (4.8-10.8) H Red Blood Count 5.54 M/UL (4.20-5.40) H Hemoglobin 16.5 G/DL (12.0-16.0) H Hematocrit 47.8 % (37.0-47.0) H Mean Corpuscular Volume 86 FL (80-99) Mean Corpuscular Hemoglobin 29.8 PG (27.0-31.0) Mean Corpuscular Hemoglobin Concent 34.6 G/DL (32.0-36.0) Red Cell Distribution Width 11.8 % (11.6-14.8) Platelet Count 264 K/UL (150-450) Mean Platelet Volume 8.0 FL (6.5-10.1) Neutrophils (%) (Auto) % (45.0-75.0) Lymphocytes (%) (Auto) % (20.0-45.0) Monocytes (%) (Auto) % (1.0-10.0) Eosinophils (%) (Auto) % (0.0-3.0) Basophils (%) (Auto) % (0.0-2.0) Differential Total Cells Counted 100 Neutrophils % (Manual) 88 % (45-75) H Lymphocytes % (Manual) 8 % (20-45) L Monocytes % (Manual) 3 % (1-10) Eosinophils % (Manual) 1 % (0-3) Basophils % (Manual) 0 % (0-2) Band Neutrophils 0 % (0-8) Platelet Estimate Adequate Platelet Morphology Normal Prothrombin Time 10.3 SEC (9.30-11.50) Prothromb Time International Ratio 1.0 (0.9-1.1) Activated Partial Thromboplast Time 27 SEC (23-33) Sodium Level 136 MMOL/L (136-145) Potassium Level 4.0 MMOL/L (3.5-5.1) Chloride Level 102 MMOL/L (98-107) Carbon Dioxide Level 24 MMOL/L (21-32) Anion Gap 10 mmol/L (5-15) Blood Urea Nitrogen 12 mg/dL (7-18) Creatinine 0.8 MG/DL (0.55-1.30) Estimat Glomerular Filtration Rate > 60 mL/min (>60) Glucose Level 134 MG/DL (74-106) H Calcium Level 8.9 MG/DL (8.5-10.1) Total Bilirubin 0.6 MG/DL (0.2-1.0) Aspartate Amino Transf (AST/SGOT) 21 U/L (15-37) Alanine Aminotransferase (ALT/SGPT) 33 U/L (12-78) Alkaline Phosphatase 57 U/L (46-116) Total Protein 7.9 G/DL (6.4-8.2) Albumin 4.2 G/DL (3.4-5.0) Globulin 3.7 g/dL Albumin/Globulin Ratio 1.1 (1.0-2.7) Lipase 153 U/L (73-393) Height (Feet): 5 Height (Inches): 6.00 Weight (Pounds): 150 Medications Current Medications Medications (Trade) Dose Ordered Sig/Carlos Route PRN Reason Start Time Stop Time Status Last Admin Dose Admin Diatrizoate Meglum/ Diatrizoate Sod (Gastrografin) 60 ml NOW PRN RECTAL Radiology Procedure 09/02/18 06:00 09/04/18 05:53 Piperacillin Sod/ Tazobactam Sod 3.375 gm/Sodium Chloride 110 ml @ 27.5 mls/hr EVERY 8 HOURS IVPB 09/02/18 14:00 09/07/18 13:59 09/02/18 14:26 Assessment/Plan Assessment/Plan: Hematology Consultation Note Reason for Hospitalization: Abdominal Pain Referring physician: JARVIS YANEZ Reason for Consultation: Erythrocytosis DOS: 09/02/18 HPI This is a 53-year-old female with a history of partial hysterectomy in had previous small bowel obstruction because of it. She presents with chief complaint abdominal pain. Onset this morning. It was better after Tylenol. But it came back again tonight after she got back from [place]. Pain was crampy and sharp. 9 out of 10. She has vomiting. Now with diarrhea. Eating and drinking made it worse. No fever chills but no fever. Similar symptoms in the past. GI consulted for abdominal pain, possible partial SBO as noted on recent CT. Pt seen, awake A&Ox4 NAD with no active s/sx of N/V/D. Per patient , had multiple episodes of emesis and abdominal cramping last night which has resolved at this time. Her abdominal is soft, non distended. She stated she had a BM this morning as well. She has a history of partial SBO back in 2014 after her partial hysterectomy, in which no surgical intervention was done and the SBO was allowed to resolve on its own. Labs review noted with leukocytosis and hemoconcentration. Patient has no history of endoscopy or colonoscopy. Surgery was consulted as well as heme for erythrocytosis Home Meds Active Scripts Metoclopramide Hcl* (REGLAN*) 10 Mg Tablet, 10 MG ORAL BID, #10 TAB Prov:Jarvis Barry DO 01/08/17 Famotidine (PEPCID) 40 Mg Tablet, 40 MG PO DAILY, #7 TAB 0 Refills Prov:Jarvis Barry DO 01/08/17 Metoclopramide Hcl* (REGLAN*) 10 Mg Tablet, 10 MG ORAL THREE TIMES A DAY, #20 TAB Prov:ALYCE NELSON D.O. 10/14/14 Ketorolac Tromethamine (Ketorolac Tromethamine) 10 Mg Tab, 10 MG GT Q6HR, #30 TAB Prov:Addy Daugherty MD 09/15/14 Reported Medications Ibuprofen* (MOTRIN*) 600 Mg Tablet, 800 MG ORAL THREE TIMES A DAY, #30 TAB 0 Refills 09/02/18 No Known Medications* (NKM - No Known Medications*) ., 0 ., 0 Refills 01/08/17 Oxycodone/Acetaminophen 5-325* (PERCOCET 5-325 MG TABLET*) 1 Each Tablet, 1 TAB ORAL Q4H PRN for For Pain, TAB 10/14/14 Discontinued Reported Medications Ibuprofen (Ibuprofen) 800 Mg Tablet, 800 MG PO FOUR TIMES A DAY PRN for For Pain , TAB 10/14/14 Med list reviewed/reconciled: Yes Allergies: Coded Allergies: No Known Allergies (Unverified , 12/12/12) History Provided By: Patient, Medical Record PMH Narrative Past Medical History: see triage record, old chart reviewed Past Surgical History: hysterectomy Pertinent Family History: none Social History: Denies: smoking Last Menstrual Period: n/a Now: No Immunizations: other Reviewed Nursing Documentation: PMH: Agreed; PSxH: Agreed Past Medical History: No History, Except For Hx Cardiac Problems: No - Hysterectomy September Hx Diabetes: No Hx Cancer: No Hx Gastrointestinal Problems: Yes Hx Neurological Problems: No Social History: Reports: smoking; Denies: alcohol use, drug use, other Review of Systems: negative except mentioned in HPI PE Vital Signs Date Time Temp Pulse Resp B/P (MAP) Pulse Ox O2 Delivery O2 Flow Rate FiO2 09/02/18 02:03 98.2 83 18 95 Room Air 09/02/18 02:17 148/88 Sp02 EP Interpretation: reviewed, normal Labs Laboratory Tests Test 09/02/18 02:00 09/02/18 02:25 Urine Color Yellow Urine Appearance Slightly cloudy Urine pH 5 (4.5-8.0) Urine Specific [place] 1.025 (1.005-1.035) Urine Protein 3+ (NEGATIVE) H Urine Glucose (UA) Negative (NEGATIVE) Urine Ketones 2+ (NEGATIVE) H Urine Blood 5+ (NEGATIVE) H Urine Nitrite Negative (NEGATIVE) Urine Bilirubin Negative (NEGATIVE) Urine Urobilinogen Normal MG/DL (0.0-1.0) Urine Leukocyte Esterase 1+ (NEGATIVE) H Urine RBC 5-10 /HPF (0 - 2) H Urine WBC 2-4 /HPF (0 - 2) Urine Squamous Epithelial Cells Few /LPF (NONE/OCC) Urine Amorphous Sediment Many /LPF (NONE) H Urine Bacteria Moderate /HPF (NONE) H White Blood Count 13.8 K/UL (4.8-10.8) H Red Blood Count 5.54 M/UL (4.20-5.40) H Hemoglobin 16.5 G/DL (12.0-16.0) H Hematocrit 47.8 % (37.0-47.0) H Mean Corpuscular Volume 86 FL (80-99) Mean Corpuscular Hemoglobin 29.8 PG (27.0-31.0) Mean Corpuscular Hemoglobin Concent 34.6 G/DL (32.0-36.0) Red Cell Distribution Width 11.8 % (11.6-14.8) Platelet Count 264 K/UL (150-450) Mean Platelet Volume 8.0 FL (6.5-10.1) Neutrophils (%) (Auto) % (45.0-75.0) Lymphocytes (%) (Auto) % (20.0-45.0) Monocytes (%) (Auto) % (1.0-10.0) Eosinophils (%) (Auto) % (0.0-3.0) Basophils (%) (Auto) % (0.0-2.0) Differential Total Cells Counted 100 Neutrophils % (Manual) 88 % (45-75) H Lymphocytes % (Manual) 8 % (20-45) L Monocytes % (Manual) 3 % (1-10) Eosinophils % (Manual) 1 % (0-3) Basophils % (Manual) 0 % (0-2) Band Neutrophils 0 % (0-8) Platelet Estimate Adequate Platelet Morphology Normal Prothrombin Time 10.3 SEC (9.30-11.50) Prothromb Time International Ratio 1.0 (0.9-1.1) Activated Partial Thromboplast Time 27 SEC (23-33) Sodium Level 136 MMOL/L (136-145) Potassium Level 4.0 MMOL/L (3.5-5.1) Chloride Level 102 MMOL/L (98-107) Carbon Dioxide Level 24 MMOL/L (21-32) Anion Gap 10 mmol/L (5-15) Blood Urea Nitrogen 12 mg/dL (7-18) Creatinine 0.8 MG/DL (0.55-1.30) Estimat Glomerular Filtration Rate > 60 mL/min (>60) Glucose Level 134 MG/DL (74-106) H Calcium Level 8.9 MG/DL (8.5-10.1) Total Bilirubin 0.6 MG/DL (0.2-1.0) Aspartate Amino Transf (AST/SGOT) 21 U/L (15-37) Alanine Aminotransferase (ALT/SGPT) 33 U/L (12-78) Alkaline Phosphatase 57 U/L (46-116) Total Protein 7.9 G/DL (6.4-8.2) Albumin 4.2 G/DL (3.4-5.0) Globulin 3.7 g/dL Albumin/Globulin Ratio 1.1 (1.0-2.7) Lipase 153 U/L (73-393) General Appearance: well appearing, no apparent distress Head: normocephalic EENT: PERRL/EOMI, normal ENT inspection Neck: supple Respiratory: normal breath sounds, no respiratory distress Cardiovascular: normal rate Gastrointestinal: normal inspection, non tender Rectal: deferred Genitourinary: no CVA tenderness Musculoskeletal: normal inspection, back normal Neurologic: normal inspection, alert, oriented x3 Psychiatric: normal inspection Skin: normal inspection, normal color Lymphatic: normal inspection, no adenopathy Current Medications Current Medications Medications (Trade) Dose Ordered Sig/Carlos Route PRN Reason Start Time Stop Time Status Last Admin Dose Admin Diatrizoate Meglum/ Diatrizoate Sod (Gastrografin) 60 ml NOW PRN RECTAL Radiology Procedure 09/02/18 06:00 09/04/18 05:53 Piperacillin Sod/ Tazobactam Sod 3.375 gm/Sodium Chloride 110 ml @ 27.5 mls/hr EVERY 8 HOURS IVPB 09/02/18 14:00 09/07/18 13:59 Assessment and Recs # Erythrocytosis with elevated hgb/hct on admission --> very likely due to dehydration, has been started on ivf --> less likely is due to polycythemia vera, or other primary malignancy --> may consider sleep study if needed as op # Leukocytosis is liekly 2/2 reactive prorcess, r/o infection --> imaging as needed --> low threshold for cultures, workup # Intractable abdominal pain due to sb enteritis --> maintain NPO + IVFs --> SBFT tomorrow per gi --> serial imaging as needed # Abdominal pain --> on imaging, e/o small bowel obstruction --> per surg # Nausea & vomiting --> zofran on prn basis # Constipation The timing of this note does not necessarily reflect the time of the patient was seen. Greatly appreciate consultation! Jamie Almonte MD September 02, 2018 15:26
[2018-09-02] MEDS ORDERED: Morphine Sulfate 2mg/ml Inj(IV/IM USE ONLY) IVP PRN (18:15)
--- NOTE | 2018-09-02 19:28 | NUR ---
HAND-OFF: Report given to IVANNA JETER RN..
--- NOTE | 2018-09-02 20:00 | NUR ---
NURSE NOTES: Patient in bed awake and oriented. VSS. No SOB noted. No N&V. Patient on IV fluids tolerated well. No signs of distress noted. PRN pain medication given for 4/10 headache. Needs attended. call light within reach. In stable condition.
--- NOTE | 2018-09-02 23:46 | History and Physical Report ---
DATE OF ADMISSION: 09/02/2018 HISTORY OF PRESENT ILLNESS: The patient is admitted for abdominal pain, vomiting for one day, and GERD. The patient is originally from [place]. This has been going on for one day basically and the patient is admitted for early SBO on the imaging study and elevated WBC. The patient denies rectal bleeding. Denies history of ulcerative colitis or any colitis and does have history of reflux. PAST MEDICAL HISTORY: Significant for GERD, significant for ulcer, and significant for history of fibroids as well. PAST SURGICAL HISTORY: Partial hysterectomy. SOCIAL HISTORY: History of smoking. No history of alcohol or illicit drugs. MEDICATIONS: Takes p.r.n. medications only for Pepcid at times consequently. REVIEW OF SYSTEMS: HEENT: Denies headaches. Denies shortness of breath. Denies cough. CARDIOVASCULAR: Denies chest pain. GASTROINTESTINAL: Reports abdominal pain and vomiting x1 day and reflux. EXTREMITIES: Denies pain. NEUROLOGIC: No change in vision or speech pattern. PHYSICAL EXAMINATION: VITAL SIGNS: Temperature is 98.1, pulse of 74, blood pressure 109/65. HEENT: PERRLA. NECK: Supple. No lymphadenopathy. CHEST: Clear to auscultation. CARDIOVASCULAR: Regular rate and rhythm. GASTROINTESTINAL: Abdomen is soft. Positive bowel sounds. No organomegaly. EXTREMITIES: No edema. Sensory intact to light touch. Reflexes equal on both sides. Moves all four extremities. LABORATORY DATA: WBC of 13.8, hemoglobin of 16.5, and platelets of 264,000. Sodium 136, potassium 4, BUN of 12, creatinine of 0.8, glucose of 134. ASSESSMENT AND PLAN: Early SBO and elevated WBC I have asked Dr. Hinojosa, Dr. Wilkerson, , Dr. Chaim Braxton to see the patient to rule out infectious etiology as well as possibly could be due to previous abdominal surgery. Surgeon is to see the patient. The patient at this point does not have a surgical abdomen. Jarvis Orona M.D. DR: IFEANYI JOB#: [id number] CC:
[2018-09-03] VITALS: BP 127/66
--- NOTE | 2018-09-03 01:15 | Consultation ---
DATE OF CONSULTATION: 09/02/2018 INFECTIOUS DISEASES CONSULTATION CONSULTING PHYSICIAN: Chaim Braxton M.D. PRIMARY ATTENDING PHYSICIAN: Jarvis Orona M.D. REASON FOR CONSULTATION: Enteritis , small bowel obstruction. HISTORY OF PRESENT ILLNESS: This is a 53-year-old English female, admitted today from home, complaining of sudden onset of abdominal pain. The patient had recent trip to [place] and came back. She had abdominal pain, 9/10. She had nausea and vomiting. She had history of similar problem in the past. PAST MEDICAL HISTORY: Significant for hysterectomy in September 2014 for fibroids, history of small bowel obstruction, history of ear infection and got amoxicillin 3 weeks ago. ALLERGIES: No known drug allergy, but patient states she is mildly lactose intolerant. MEDICATIONS: Get a dose of ceftriaxone, Zofran, morphine, Protonix, ketorolac in the ER. SOCIAL HISTORY: Single. No child. Social drinking. Denies alcohol or drug abuse. Works for [employer]. Also studies. REVIEW OF SYSTEMS: No fever. No chills. No coughing. No shortness of breath. At present, there is no abdominal pain, nausea, or vomiting. She feels hungry. No problem passing urine. PHYSICAL EXAMINATION: VITAL SIGNS: Temperature 98.3, pulse 80, blood pressure 124/65. GENERAL APPEARANCE: No acute distress. Well-developed. HEAD AND NECK: No oral lesion. HEART: Normal rate. LUNGS: Clear. ABDOMEN: Soft and nontender. EXTREMITIES: No edema. NEUROLOGIC: Awake, alert, and oriented x3. LABORATORY AND DIAGNOSTIC DATA: Sodium 136, potassium 4, chloride 102, bicarbonate 24, BUN 12, creatinine 0.8, glucose 134. WBC 13.8, hemoglobin 16.5, hematocrit 47.8, platelets 264,000. CT scan of the abdomen and pelvis, hiatal hernia, diffuse small bowel ileus or enteritis.no transition identified. UA showed leukocyte esterase 1+, wbc 2 to 4, rbc 5 to 10. IMPRESSION: Enteritis, ileus of small bowel. The patient also has hiatal hernia. Her nausea and vomiting that is better. She has mild leukocytosis. RECOMMENDATIONS: We will start the patient on Zosyn. We will follow up clinically. At the end of my exam, I thank Dr. Orona for involving me in the care of this patient. Chaim Braxton M.D. DR: USMAN JOB#: [id number] CC: LUIZ
[2018-09-03 04:00] VITALS: BP 140/69
[2018-09-03] MEDS: Piperacillin/Tazobactam 3.375 GM in NS 110 ML IVPB SCH ×2 (06:07→14:24)
[2018-09-03 07:29] LABS: HEMATOCRIT 43.8 % (37.0-47.0); HEMOGLOBIN 14.8 G/DL (12.0-16.0); LYMPHOCYTES % (AUTO) 19.8 % (20.0-45.0); MEAN CORPUSCULAR VOLUME 88 FL (80-99); MONOCYTES % (AUTO) 6.1 % (1.0-10.0); NEUTROPHILS % (AUTO) 65.1 % (45.0-75.0); PLATELET COUNT 221 K/UL (150-450); RED CELL DISTRIBUTION WIDTH 11.8 % (11.6-14.8); WHITE BLOOD COUNT 6.9 K/UL (4.8-10.8)
[2018-09-03 07:40] LABS: ALANINE AMINOTRANSFERASE 25 U/L (12-78); ALBUMIN 3.4 G/DL (3.4-5.0); ALKALINE PHOSPHATASE 46 U/L (46-116); AMYLASE 61 U/L (25-115); ANION GAP 8 mmol/L (5-15); ASPARTATE AMINO TRANSFERASE 18 U/L (15-37); BILIRUBIN,TOTAL 0.7 MG/DL (0.2-1.0); BLOOD UREA NITROGEN 11 mg/dL (7-18); CALCIUM 8.1 MG/DL (8.5-10.1); CARBON DIOXIDE 25 MMOL/L (21-32); CHLORIDE 109 MMOL/L (98-107); CREATININE 0.8 MG/DL (0.55-1.30); SODIUM 142 MMOL/L (136-145)
--- NOTE | 2018-09-03 07:45 | NUR ---
NURSE NOTES: Received report from Norberto RN. Patient is awake alert and oriented x4, no acute distress noted. IVF running per order, IV intact and asymptomatic, NPO maintained. Patient reporting no abdominal pain, is reporting headache, will medicate per order. Patient updated on plan of care. Side rails upx2, bed low and locked, call light in reach. Will continue to monitor.
[2018-09-03 08:00] VITALS: BP 123/81
[2018-09-03] MEDS ORDERED: NS 500ML ONE (10:33)
--- NOTE | 2018-09-03 10:34 | NUR ---
RADIOLOGY DEPT., ABDOMEN X-RAY COMPLETED.-PD.
--- NOTE | 2018-09-03 10:53 | GI Progress Note ---
Assessment/Plan Problems: (1) Constipation (2) Symptomatic anemia ICD Codes: D64.9 - Anemia, unspecified SNOMED: 507725428 (3) Intractable abdominal pain ICD Codes: R10.9 - Unspecified abdominal pain SNOMED: 85869723 (4) Small bowel obstruction ICD Codes: K56.69 - Other intestinal obstruction SNOMED: 313096237 (5) Nausea & vomiting ICD Codes: R11.2 - Nausea with vomiting, unspecified SNOMED: 17291693 Qualifiers: Qualified Codes: R11.2 - Nausea with vomiting, unspecified (6) Abdominal pain Status: stable Status Narrative Discussed with Dr. Hayes. Assessment/Plan Abdominal pelvis CT reviewed >> The findings suggestive of ileus or enteritis. Repeat KUB today Trial of clear liquid diet serial imaging as needed zofran prn will follow with additional recs post imaging study anticipate possible dc today The patient was seen and examined at bedside and all new and available data was reviewed in the patients chart. I agree with the above findings, impression and plan. (Patient seen earlier today. Signature stamp does not reflect patient encounter time.). - Dhiraj Hayes MD Subjective Gastrointestinal/Abdominal: Reports: no symptoms Subjective patient had BM this morning Objective Last 24 Hour Vital Signs Date Time Temp Pulse Resp B/P (MAP) Pulse Ox O2 Delivery O2 Flow Rate FiO2 09/03/18 08:00 98.3 57 16 123/81 (95) 99 09/03/18 04:00 98.8 85 18 140/69 (92) 94 09/03/18 00:00 98.1 57 18 127/66 (86) 95 09/02/18 21:00 Room Air 09/02/18 20:00 98.0 64 18 121/79 (93) 98 09/02/18 15:47 98.0 56 18 122/73 (89) 96 09/02/18 11:25 Room Air 09/02/18 11:05 98.0 68 16 121/78 98 Room Air Intake and Output 09/02/18 09/03/18 18:59 06:59 Intake Total 82.5 ml 800 ml Balance 82.5 ml 800 ml Intake IV Total 82.5 ml 800 ml Laboratory Tests Test 09/03/18 06:50 White Blood Count 6.9 K/UL (4.8-10.8) Red Blood Count 5.00 M/UL (4.20-5.40) Hemoglobin 14.8 G/DL (12.0-16.0) Hematocrit 43.8 % (37.0-47.0) Mean Corpuscular Volume 88 FL (80-99) Mean Corpuscular Hemoglobin 29.7 PG (27.0-31.0) Mean Corpuscular Hemoglobin Concent 33.9 G/DL (32.0-36.0) Red Cell Distribution Width 11.8 % (11.6-14.8) Platelet Count 221 K/UL (150-450) Mean Platelet Volume 7.6 FL (6.5-10.1) Neutrophils (%) (Auto) 65.1 % (45.0-75.0) Lymphocytes (%) (Auto) 19.8 % (20.0-45.0) L Monocytes (%) (Auto) 6.1 % (1.0-10.0) Eosinophils (%) (Auto) 8.0 % (0.0-3.0) H Basophils (%) (Auto) 1.0 % (0.0-2.0) Erythrocyte Sedimentation Rate 8 MM/HR (0-30) Sodium Level 142 MMOL/L (136-145) Potassium Level 4.0 MMOL/L (3.5-5.1) Chloride Level 109 MMOL/L (98-107) H Carbon Dioxide Level 25 MMOL/L (21-32) Anion Gap 8 mmol/L (5-15) Blood Urea Nitrogen 11 mg/dL (7-18) Creatinine 0.8 MG/DL (0.55-1.30) Estimat Glomerular Filtration Rate > 60 mL/min (>60) Glucose Level 91 MG/DL (74-106) Calcium Level 8.1 MG/DL (8.5-10.1) L Total Bilirubin 0.7 MG/DL (0.2-1.0) Aspartate Amino Transf (AST/SGOT) 18 U/L (15-37) Alanine Aminotransferase (ALT/SGPT) 25 U/L (12-78) Alkaline Phosphatase 46 U/L (46-116) C-Reactive Protein, Quantitative 0.7 mg/dL (0.00-0.90) Total Protein 6.9 G/DL (6.4-8.2) Albumin 3.4 G/DL (3.4-5.0) Globulin 3.5 g/dL Albumin/Globulin Ratio 1.0 (1.0-2.7) Amylase Level 61 U/L (25-115) Lipase 164 U/L (73-393) Height (Feet): 5 Height (Inches): 6.00 Weight (Pounds): 149 General Appearance: WD/WN, no apparent distress, alert Cardiovascular: normal rate Respiratory/Chest: normal breath sounds, no respiratory distress Abdominal Exam: normal bowel sounds, non tender, soft Extremities: normal range of motion, non-tender Claire Hubbard NP September 03, 2018 10:53
--- NOTE | 2018-09-03 11:51 | NUR ---
*-* INSURANCE *-* CLINICALS AND REVIEWS HAVE BEEN FAXED TO: [employer]\ F:[phone]
[2018-09-03 12:00] VITALS: BP 117/74
--- NOTE | 2018-09-03 12:16 | Diagnostic Imaging Report ---
Indication: Abdominal pain Technique: Frontal views of the abdomen Comparison: Abdominal radiograph and CT abdomen 09/02/2018 FINDINGS/IMPRESSION: Continued interval transit of previous administered oral contrast which is now noted in a nondistended colon and rectum. Some mildly prominent small bowel loops are noted in the mid abdomen, with number and degree of dilatation decreased compared to prior. No evidence of free intraperitoneal air. No acute osseous abnormality.
--- NOTE | 2018-09-03 14:05 | Infectious Diseases Prog Note ---
Assessment/Plan Assessment/Plan IMPRESSION: Enteritis, ileus of small bowel. hiatal hernia. nausea and vomiting resolved. Resolved leukocytosis. RECOMMENDATIONS: Continue Zosyn If remains stable will stop antibiotics soon Subjective ROS Limited/Unobtainable: No Constitutional: Reports: no symptoms, other - feels bettere HEENT: Reports: other - headache Respiratory: Reports: no symptoms Cardiovascular: Reports: no symptoms Gastrointestinal/Abdominal: Reports: no symptoms, other - started on liquid diet Genitourinary: Reports: no symptoms Allergies: Coded Allergies: No Known Allergies (Unverified , 12/12/12) Objective Vital Signs Last 24 Hour Vital Signs Date Time Temp Pulse Resp B/P (MAP) Pulse Ox O2 Delivery O2 Flow Rate FiO2 09/03/18 12:00 98.0 68 16 117/74 (88) 99 09/03/18 09:00 Room Air 09/03/18 08:00 98.3 57 16 123/81 (95) 99 09/03/18 04:00 98.8 85 18 140/69 (92) 94 09/03/18 00:00 98.1 57 18 127/66 (86) 95 09/02/18 21:00 Room Air 09/02/18 20:00 98.0 64 18 121/79 (93) 98 09/02/18 15:47 98.0 56 18 122/73 (89) 96 Height (Feet): 5 Height (Inches): 6.00 Weight (Pounds): 149 General Appearance: no acute distress HEENT: mucous membranes moist Respiratory/Chest: lungs clear Cardiovascular: normal rate Abdomen: soft, non tender Extremities: no edema Neurologic/Psychiatric: alert, oriented x 3, responsive Microbiology Date/Time Source Procedure Growth Status 09/02/18 02:00 Urine,Clean Catch Urine Culture - Preliminary Gram Positive Cocci Resulted Laboratory Tests Test 09/03/18 06:50 White Blood Count 6.9 K/UL (4.8-10.8) Red Blood Count 5.00 M/UL (4.20-5.40) Hemoglobin 14.8 G/DL (12.0-16.0) Hematocrit 43.8 % (37.0-47.0) Mean Corpuscular Volume 88 FL (80-99) Mean Corpuscular Hemoglobin 29.7 PG (27.0-31.0) Mean Corpuscular Hemoglobin Concent 33.9 G/DL (32.0-36.0) Red Cell Distribution Width 11.8 % (11.6-14.8) Platelet Count 221 K/UL (150-450) Mean Platelet Volume 7.6 FL (6.5-10.1) Neutrophils (%) (Auto) 65.1 % (45.0-75.0) Lymphocytes (%) (Auto) 19.8 % (20.0-45.0) L Monocytes (%) (Auto) 6.1 % (1.0-10.0) Eosinophils (%) (Auto) 8.0 % (0.0-3.0) H Basophils (%) (Auto) 1.0 % (0.0-2.0) Erythrocyte Sedimentation Rate 8 MM/HR (0-30) Sodium Level 142 MMOL/L (136-145) Potassium Level 4.0 MMOL/L (3.5-5.1) Chloride Level 109 MMOL/L (98-107) H Carbon Dioxide Level 25 MMOL/L (21-32) Anion Gap 8 mmol/L (5-15) Blood Urea Nitrogen 11 mg/dL (7-18) Creatinine 0.8 MG/DL (0.55-1.30) Estimat Glomerular Filtration Rate > 60 mL/min (>60) Glucose Level 91 MG/DL (74-106) Calcium Level 8.1 MG/DL (8.5-10.1) L Total Bilirubin 0.7 MG/DL (0.2-1.0) Aspartate Amino Transf (AST/SGOT) 18 U/L (15-37) Alanine Aminotransferase (ALT/SGPT) 25 U/L (12-78) Alkaline Phosphatase 46 U/L (46-116) C-Reactive Protein, Quantitative 0.7 mg/dL (0.00-0.90) Total Protein 6.9 G/DL (6.4-8.2) Albumin 3.4 G/DL (3.4-5.0) Globulin 3.5 g/dL Albumin/Globulin Ratio 1.0 (1.0-2.7) Amylase Level 61 U/L (25-115) Lipase 164 U/L (73-393) Current Medications Medications (Trade) Dose Ordered Sig/Carlos Route PRN Reason Start Time Stop Time Status Last Admin Dose Admin Acetaminophen (Tylenol) 650 mg Q4H PRN ORAL Mild Pain/Temp > 100.5 09/02/18 21:30 10/02/18 21:29 09/03/18 13:44 Morphine Sulfate (Morphine Sulfate) 2 mg Q4H PRN IVP Severe Pain (Pain Scale 7-10) 09/02/18 18:15 09/09/18 18:14 Piperacillin Sod/ Tazobactam Sod 3.375 gm/Sodium Chloride 110 ml @ 27.5 mls/hr EVERY 8 HOURS IVPB 09/02/18 14:00 09/07/18 13:59 09/03/18 06:07 Sodium Chloride 1,000 ml @ 100 mls/hr Q10H IV 09/02/18 20:00 10/02/18 19:59 09/03/18 06:07 Chaim Braxton MD September 03, 2018 14:05
--- NOTE | 2018-09-03 14:13 | NUR ---
NURSE NOTES: Spoke with Dr. Wilkerson. Per MD, patient is clear to discharge on clear liquid diet from his standpoint. Will continue to monitor.
--- NOTE | 2018-09-03 14:31 | Surgery Progress Note ---
Surgery Progress Note Subjective Additional Comments no acute events. doing well tolerating diet had BM's wants to go home no pain labs okay Objective Last 24 Hour Vital Signs Date Time Temp Pulse Resp B/P (MAP) Pulse Ox O2 Delivery O2 Flow Rate FiO2 09/03/18 14:14 98.0 09/03/18 12:00 98.0 68 16 117/74 (88) 99 09/03/18 09:00 Room Air 09/03/18 08:00 98.3 57 16 123/81 (95) 99 09/03/18 04:00 98.8 85 18 140/69 (92) 94 09/03/18 00:00 98.1 57 18 127/66 (86) 95 09/02/18 21:00 Room Air 09/02/18 20:00 98.0 64 18 121/79 (93) 98 09/02/18 15:47 98.0 56 18 122/73 (89) 96 I&O Intake and Output 09/02/18 09/03/18 19:00 07:00 Intake Total 82.5 ml 927.5 ml Balance 82.5 ml 927.5 ml IV Total 82.5 ml 927.5 ml Cardiovascular: RSR Respiratory: clear Abdomen: soft, flat, non-tender, present bowel sounds, non-distended Extremities: no edema, no tenderness, no cyanosis Laboratory Tests Test 09/03/18 06:50 White Blood Count 6.9 K/UL (4.8-10.8) Red Blood Count 5.00 M/UL (4.20-5.40) Hemoglobin 14.8 G/DL (12.0-16.0) Hematocrit 43.8 % (37.0-47.0) Mean Corpuscular Volume 88 FL (80-99) Mean Corpuscular Hemoglobin 29.7 PG (27.0-31.0) Mean Corpuscular Hemoglobin Concent 33.9 G/DL (32.0-36.0) Red Cell Distribution Width 11.8 % (11.6-14.8) Platelet Count 221 K/UL (150-450) Mean Platelet Volume 7.6 FL (6.5-10.1) Neutrophils (%) (Auto) 65.1 % (45.0-75.0) Lymphocytes (%) (Auto) 19.8 % (20.0-45.0) L Monocytes (%) (Auto) 6.1 % (1.0-10.0) Eosinophils (%) (Auto) 8.0 % (0.0-3.0) H Basophils (%) (Auto) 1.0 % (0.0-2.0) Erythrocyte Sedimentation Rate 8 MM/HR (0-30) Sodium Level 142 MMOL/L (136-145) Potassium Level 4.0 MMOL/L (3.5-5.1) Chloride Level 109 MMOL/L (98-107) H Carbon Dioxide Level 25 MMOL/L (21-32) Anion Gap 8 mmol/L (5-15) Blood Urea Nitrogen 11 mg/dL (7-18) Creatinine 0.8 MG/DL (0.55-1.30) Estimat Glomerular Filtration Rate > 60 mL/min (>60) Glucose Level 91 MG/DL (74-106) Calcium Level 8.1 MG/DL (8.5-10.1) L Total Bilirubin 0.7 MG/DL (0.2-1.0) Aspartate Amino Transf (AST/SGOT) 18 U/L (15-37) Alanine Aminotransferase (ALT/SGPT) 25 U/L (12-78) Alkaline Phosphatase 46 U/L (46-116) C-Reactive Protein, Quantitative 0.7 mg/dL (0.00-0.90) Total Protein 6.9 G/DL (6.4-8.2) Albumin 3.4 G/DL (3.4-5.0) Globulin 3.5 g/dL Albumin/Globulin Ratio 1.0 (1.0-2.7) Amylase Level 61 U/L (25-115) Lipase 164 U/L (73-393) Plan Problems: (1) Abdominal pain Assessment & Plan: 53 year old F with abdominal pain, nausea, emesis, leukocytosis, CT with enteritis. afebrile, HD stable, exam benign CT noted labs improved KUB noted Continued interval transit of previous administered oral contrast which is now noted in a nondistended colon and rectum. Some mildly prominent small bowel loops are noted in the mid abdomen, with number and degree of dilatation decreased compared to prior. No evidence of free intraperitoneal air. No acute osseous abnormality. -no acute surgical intervention necessary -clear liquids; d/c on clears. patient will slowly advance as tolerated at home -okay to d/c from surgical standpoint will follow with recs (2) Nausea & vomiting Ankit Wilkerson September 03, 2018 14:31
--- NOTE | 2018-09-03 14:40 | General Progress Note ---
Assessment/Plan Status: stable Assessment/Plan: Assessment and Recs # Erythrocytosis with elevated hgb/hct on admission --> very likely due to dehydration, has been started on ivf --> less likely is due to polycythemia vera, or other primary malignancy --> may consider sleep study if needed as op --> improved # Leukocytosis is liekly 2/2 reactive prorcess, r/o infection --> imaging as needed --> low threshold for cultures, workup --> improved # Intractable abdominal pain due to sb enteritis --> maintain NPO + IVFs --> SBFT tomorrow per gi --> serial imaging as needed # Abdominal pain --> on imaging, e/o small bowel obstruction --> per surg # Nausea & vomiting --> zofran on prn basis # Constipation The timing of this note does not necessarily reflect the time of the patient was seen. Greatly appreciate consultation! Subjective Constitutional: Denies: no symptoms, chills, diaphoresis, fever, malaise, weakness, other HEENT: Denies: no symptoms, eye pain, blurred vision, tearing, double vision, ear pain, ear discharge, nose pain, nose congestion, throat pain, throat swelling, mouth pain, mouth swelling, other Cardiovascular: Denies: no symptoms, chest pain, edema, irregular heart rate, lightheadedness, palpitations, syncope, other Respiratory: Denies: no symptoms, cough, orthopnea, shortness of breath, SOB with excertion, SOB at rest, sputum, stridor, wheezing, other Gastrointestinal/Abdominal: Denies: no symptoms, abdomen distended, abdominal pain, black stools, tarry stools, blood in stool, constipated, diarrhea, difficulty swallowing, nausea, poor appetite, poor fluid intake, rectal bleeding , vomiting, other Neurologic/Psychiatric: Denies: no symptoms, anxiety, depressed, emotional problems, headache, numbness, paresthesia, pre-existing deficit, seizure, tingling, tremors, weakness, other Endocrine: Denies: no symptoms, excessive sweating, flushing, intolerance to cold, intolerance to heat, increased hunger, increased thirst, increased urine, unexplained weight gain, unexplained weight loss, other Allergies: Coded Allergies: No Known Allergies (Unverified , 12/12/12) Subjective 09/03: leukocytosis is resolved, wants to be discharged Objective Last 24 Hour Vital Signs Date Time Temp Pulse Resp B/P (MAP) Pulse Ox O2 Delivery O2 Flow Rate FiO2 09/03/18 14:14 98.0 09/03/18 12:00 98.0 68 16 117/74 (88) 99 09/03/18 09:00 Room Air 09/03/18 08:00 98.3 57 16 123/81 (95) 99 09/03/18 04:00 98.8 85 18 140/69 (92) 94 09/03/18 00:00 98.1 57 18 127/66 (86) 95 09/02/18 21:00 Room Air 09/02/18 20:00 98.0 64 18 121/79 (93) 98 09/02/18 15:47 98.0 56 18 122/73 (89) 96 Intake and Output 09/02/18 09/03/18 19:00 07:00 Intake Total 82.5 ml 927.5 ml Balance 82.5 ml 927.5 ml IV Total 82.5 ml 927.5 ml Laboratory Tests 09/03/18 06:50: White Blood Count 6.9, Red Blood Count 5.00, Hemoglobin 14.8, Hematocrit 43.8, Mean Corpuscular Volume 88, Mean Corpuscular Hemoglobin 29.7, Mean Corpuscular Hemoglobin Concent 33.9, Red Cell Distribution Width 11.8, Platelet Count 221, Mean Platelet Volume 7.6, Neutrophils (%) (Auto) 65.1, Lymphocytes (%) (Auto) 19.8L, Monocytes (%) (Auto) 6.1, Eosinophils (%) (Auto) 8.0H, Basophils (%) ( Auto) 1.0, Erythrocyte Sedimentation Rate 8, Sodium Level 142, Potassium Level 4.0, Chloride Level 109H, Carbon Dioxide Level 25, Anion Gap 8, Blood Urea Nitrogen 11, Creatinine 0.8, Estimat Glomerular Filtration Rate > 60, Glucose Level 91, Calcium Level 8.1L, Total Bilirubin 0.7, Aspartate Amino Transf (AST/ SGOT) 18, Alanine Aminotransferase (ALT/SGPT) 25, Alkaline Phosphatase 46, C- Reactive Protein, Quantitative 0.7, Total Protein 6.9, Albumin 3.4, Globulin 3.5 , Albumin/Globulin Ratio 1.0, Amylase Level 61, Lipase 164 Height (Feet): 5 Height (Inches): 6.00 Weight (Pounds): 149 Objective General Appearance: well appearing, nad Head: normocephalic EENT: PERRL/EOMI, normal ENT inspection Respiratory: normal breath sounds, no respiratory distress Cardiovascular: normal rate Gastrointestinal: normal inspection, nt Rectal: deferred Genitourinary: no CVA tenderness Musculoskeletal: normal inspection Neurologic: normal inspection, alert, oriented x3 Psychiatric: normal inspection Lymphatic: normal inspection, no adenopathy Jamie Almonte MD September 03, 2018 14:40
--- NOTE | 2018-09-03 15:13 | NUR ---
CASE MANAGEMENT:REVIEW 53 YR OLD FEMALE PRESENTED TO ER CC: ABDOMINAL PAIN AND CRAMPING. VOMITED SI: ABDOMINAL PAIN. N/V. UTI 98.3 83 18 162/90 95% ON RA WBC+13.8 IS: IV ZOFRAN IV MORPHINE 1L NS BOLUS IV PROTONIX IV ROCEPHIN IV TORADOL CT ABD/PELVIS XRAY ABD URINE CX : TO MED/SURG 3 [facility] CRITERIA MET
--- NOTE | 2018-09-03 15:30 | NUR ---
NURSE NOTES: Spoke with Dr. O[place]. MD ordered to discharge. MD ordered to discharge patient with regular diet. JUAN Spence also stated ok to discharge patient with regular diet.
[2018-09-03 16:00] VITALS: BP 114/68
--- NOTE | 2018-09-03 18:42 | NUR ---
NURSE NOTES: Patient discharged. No acute distress on discharge. Patient provided with discharge instructions and reports understanding of provided education. Patient instructed to follow up with primary care doctor and GI doctor within one week. IV removed intact. Patient tolerated regular diet well, had one soft, semi-liquid bowel movement, patient reported bowel movement more formed than prior to admission. IV antibiotics complete. Patient escorted off unit in stable condition with steady gait to private vehicle, accompanied by [employer].
--- NOTE | 2018-09-04 09:44 | Discharge Summary ---
Discharge Summary Discharge Summary _ DATE OF ADMISSION: 09/02/2018 DATE OF DISCHARGE: 09/03/2018 DISCHARGED BY: Dr. Jarvis Landis CONSULTANTS: Dr. Jamie Hayes [facility] COURSE: Patient is a 53-year-old female, history of partial hysterectomy and had previous small bowel obstruction, presented to ED with complaints of abdominal pain. Onset was in the morning of arrival to ED, symptoms recurred after she got back from [place]. Pain was described to be crampy and sharp. 9 out of 10. She had vomiting and diarrhea. Eating and drinking made it worse. She denied fever or chills. She had similar symptoms in the past. On evaluation at the ED, blood work showed leukocytosis. Hemoglobin was 16 and hematocrit 48. Electrolytes were normal. LFTs were normal. Lipase normal. It showed 3+ protein, 1+ leukocyte esterase, 5-10 RBC, 2-[address] scan of the abdomen without contrast was equivocal. Abdominal x-ray showed nonspecific bowel gas. CT of the abdomen and pelvis showed dilated fluid-filled loops of small bowel was. Could be early or partial small bowel obstruction versus ileus. Fluid seen in multiple loops of small bowel. Patient was then admitted for evaluation of abdominal pain, possible early SBO. Surgeon and GI was consulted. Patient was placed on n.p.o. She was given IV hydration and was started on IV Zosyn. She was given symptomatic treatment. She was placed on close observation. Patient would need serial imaging. No acute surgical intervention was necessary. [employer] was consulted. Patient had erythrocytosis with elevated hemoglobin and hematocrit on admission. Likely due to dehydration. Leukocytosis was likely secondary to reactive process. Small bowel follow follow-through was done. Results showed distended small bowel consistent with enteritis/ileus. Patient was tolerating clear diet. Abdominal series done the following day showed number and degree of dilatation decreased. There was no evidence of free intraperitoneal air. Diet was advanced. Patient had a bowel movement. She was tolerating regular diet well. Leukocytosis resolved. Urine culture showed growth of mixed gram- positive organisms. She was eventually discharged home. FINAL DIAGNOSES: Abdominal pain, nausea and vomiting due to enteritis/ileus Leukocytosis Erythrocytosis Hiatal hernia Constipation DISPOSITION: Patient was discharged home. DISCHARGE MEDICATIONS: No known meds. DISCHARGE INSTRUCTIONS: Follow-up in a week. I have been assigned to complete a discharge summary on this account, I was not involved with the patient's management. Brie Macedo NP September 04, 2018 09:44
--- NOTE | 2018-09-04 12:58 | NUR ---
*-* INSURANCE *-* UPDATED CLINICALS AND REVIEWS HAVE BEEN FAXED TO: [employer]\ F:[phone]
== END 2018-09-03 18:39 | disposition home or self-care (01) | DRG 392 ==
LOC: EMR 02:25 → 3E 08:30 → EDBEDREQ 10:24
DX: K52.89 Other specified noninfective gastroenteritis and colitis (principal); K56.699 Other intestinal obstruction unspecified as to partial versus complete obstruction; K21.9 Gastro-esophageal reflux disease without esophagitis; E86.0 Dehydration; D75.1 Secondary polycythemia; K44.9 Diaphragmatic hernia without obstruction or gangrene; K59.00 Constipation, unspecified
CPT/HCPCS: 36415; 74018; 74176; 74177; 80053; 81003; 82150; 82668; 83690; 85007; 85025; 85610; 85651; 85730; 86140; 87086; 96361; 96365; 96375; 99291; J2405